=== PATIENT | female | born 2000 | race Caucasian/White ===

== ENCOUNTER 2024-05-31 13:36 | Emergency (ER) | payer MEDICAID ==
[~2024-05-31] VITALS: Ht 160 cm; Wt 59.0 kg
[2024-05-31 13:48] VITALS: BP 107/70; O2SAT 100
[2024-05-31 13:49] VITALS: PULSE 98; RESP 18; O2SAT 99
[2024-05-31 18:36] VITALS: TEMP 98.5
[2024-05-31] MEDS: MECLIZINE 25MG TABLET PO ONE (18:36)
[2024-05-31] MEDS: ACETAMINOPHEN 325MG TABLET PO ONE (18:36)
[2024-05-31 19:02] LABS: CLARITY URINE CLOUDY (CLEAR); COLOR URINE YELLOW (YELLOW); GLUCOSE URINE NEGATIVE (NEGATIVE); KETONES URINE NEGATIVE (NEGATIVE); LEUKOCYTE ESTERASE URINE 2+ (NEGATIVE); NITRITE URINE NEGATIVE (NEGATIVE); OCCULT BLOOD URINE NEGATIVE (NEGATIVE); PROTEIN URINE TRACE (NEGATIVE); SPECIFIC GRAVITY URINE 1.029 (1.005-1.030); UROBILINOGEN URINE 0.2 E.U./dL (0.2-1.0)
[2024-05-31 19:03] LABS: BASOPHILS % 0.5 % (0.0-2.0); EOSINOPHILS % 0.8 % (0.0-5.0); HEMOGLOBIN. 13.8 g/dL (12.0-16.0); MEAN CORPUSCULAR HEMOGLOBIN 30.4 pg (28.0-32.0); MEAN CORPUSCULAR HGB CONC 33.7 g/dL (31.0-37.0); MEAN CORPUSCULAR VOLUME 90.1 fL (81.0-99.0); MEAN PLATELET VOLUME 7.8 fl (7.4-10.4); MONOCYTES % 5.8 % (2.0-8.0); NEUTROPHILS % 68.9 % (40.0-76.0); PLATELET 285 x1000/uL (130-400); RED BLOOD CELL COUNT 4.55 mill/uL (4.2-5.4); RED CELL DISTRIBUTION WIDTH 13.3 % (11.6-14.6); WHITE BLOOD COUNT 7.5 x1000/uL (4.5-11.0)
[2024-05-31 19:11] LABS: BACTERIA URINE 1+; CALCIUM OXALATE CRYSTALS URINE 1+ /lpf; RBC URINE 0-2 /hpf (0-2); SQUAMOUS EPITHELIAL CELL URINE 2+ /lpf (RARE/1+)
[2024-05-31 19:13] LABS: CHLORIDE 106 mEq/L (98-107); POTASSIUM 4.1 mEq/L (3.5-5.1); SODIUM 136 mEq/L (136-145)
[2024-05-31 19:14] LABS: CALCIUM 9.7 mg/dL (8.7-10.4); CARBON DIOXIDE 22 mEq/L (21-32)
[2024-05-31 19:19] LABS: CREATININE 0.7 mg/dL (0.6-1.0); GLUCOSE 84 mg/dL (70-105); HCG SCREEN NEGATIVE; UREA NITROGEN BLOOD 8 mg/dL (9-23)
[2024-05-31] MEDS ORDERED: MECL-299 MT (22:29)
[2024-05-31] MEDS ORDERED: NITR-87 MT (22:29)
== END 2024-05-31 22:40 | disposition home or self-care (01) ==
LOC: ER 13:36
DX: R42 Dizziness and giddiness (principal); N39.0 Urinary tract infection, site not specified; R51.9 Headache, unspecified
CPT/HCPCS: 99284; 70450; 80048; 81003; 84703; 85025; 36415; 93005; J8597